=== PATIENT | male | born 1985 | race Caucasian/White ===

== ENCOUNTER 2016-07-02 22:12 | Emergency (ER) | payer OTHER ==
--- NOTE | ~2016-07-02 | CR142 ---
[facility] A Service [facility] RADIOLOGY TEXT RESULTS PATIENT: EVELIO MEDRANO LOCATION: SED : 87 UNIT #: [id number] AGE: [address]: JANEL CEE SEX: M ORDER DR: [id number] [place] [id number] E MR#: [id number] #: [id number] NAME: EVELIO MEDRANO : 1985 SEX: M STUDY DATE/TIME: 07/02/2016 22:27 UNIT: SED ROOM: STUDY DESCRIPTION: CR Hand Min 3 Views Rt Attending Physician: Janel Cee Ordering Physician: Shon Not Listed Primary Care Physician: No Primary Care Physician MEDICAL IMAGING REPORT This report is preliminary unless electronic signature is present. EXAM 3 views of the right hand, 07/02/2016. HISTORY Right hand pain. Restricted movement. Cut right middle finger on glass 1 week ago. COMPARISON STUDIES None FINDINGS Soft tissue swelling is seen surrounding the right 2nd finger. A tiny 2-mm calcific density is seen at the volar margin of the PIP joint near the middle phalanx and could represent a tiny cortical avulsion injury. No xazvrdr-qej-dpypvwh fracture line is seen, and there is no joint dislocation. No significant osteoarthritic change. Benign-appearing bone cyst is demonstrated within the distal ulna, distal scaphoid bone at the wrist, and within the distal third metacarpal. IMPRESSION 1. 2-mm calcification is seen at the volar margin of the PIP joint of the right third finger that is nonspecific and could radiopharmaceutical a tiny cortical avulsion injury. Soft tissue swelling is seen in this same vicinity. 2. No ybpswcc-jbz-owfkuul fracture line is identified, and there is no joint dislocation. Dictated by... Juliet Darden M.D. [facility] A Service [facility] RADIOLOGY TEXT RESULTS PATIENT: EVELIO MEDRANO LOCATION: SED : [birth year] UNIT #: [id number] AGE: [address]: JANEL CEE SEX: M ORDER DR: THIS IS AN ELECTRONICALLY VERIFIED REPORT Juliet Darden M.D. at 07/04/2016 12:12 AM Rustam TD: 07/03/2016 11:31 JOB #: [id number] MEDICAL IMAGING REPORT
[~2016-07-02 22:12] MED LIST: NO MEDICATIONS
[2016-07-02] MEDS ORDERED: IBUPROFEN600 MG PO (23:06)
== END 2016-07-02 23:06 | disposition home or self-care (01) ==
LOC: SED 22:12
DX: M79.644 Pain in right finger(s) (principal); F17.200 Nicotine dependence, unspecified, uncomplicated; Z23 Encounter for immunization
CPT/HCPCS: 73130; 90471; 90715; 99283